=== PATIENT | male | born 1960 | race Caucasian/White ===

== ENCOUNTER 2020-01-30 00:31 | Emergency (ER) | payer BC, OTHER ==
[2020-01-30 01:43] LABS: APPEARANCE,URINE CLEAR; BILIRUBIN,URINE NEGATIVE (NEGATIVE); COLOR,URINE YELLOW; GLUCOSE, URINE NEGATIVE (NEGATIVE); KETONES,URINE NEGATIVE (NEGATIVE); LEUKOCYTE ESTERASE,URINE NEGATIVE (NEGATIVE); NITRITE,URINE NEGATIVE (NEGATIVE); PROTEIN,URINE NEGATIVE (NEGATIVE); URINE SPECIFIC GRAVITY 1.023; UROBILINOGEN,URINE NEGATIVE mg/dL (<2.0)
[2020-01-30 01:47] LABS: ABSOLUTE EOSINOPHILS # (AUTO) 0.2 10^3/uL (0.0-0.6); ABSOLUTE LYMPHOCYTES (AUTO) 1.9 10^3/uL (0.5-4.7); ABSOLUTE MONOCYTES (AUTO) 0.7 10^3/uL (0.1-1.4); ABSOLUTE NEUT (AUTO) 3.2 10^3/uL (1.7-8.2); BASOPHILS % (AUTO) 0.6 % (0-2); EOSINOPHILS % (AUTO) 3.2 % (0-6); HEMATOCRIT 44.4 % (37.9-51.0); HEMOGLOBIN 15.4 g/dL (13.5-17.0); LYMPHOCYTES % (AUTO) 32.2 % (13-45); MEAN CORPUSCULAR HEMOGLOBIN 31.7 pg (27.0-33.4); MEAN CORPUSCULAR HGB CONC 34.8 g/dL (32.0-36.0); MEAN CORPUSCULAR VOLUME 91 fl (80-97); PLATELET COUNT 161 10^3/uL (150-450); RED BLOOD COUNT 4.88 10^6/uL (4.35-5.55); RED CELL DISTRIBUTION WIDTH 14.2 % (11.5-14.0); TOTAL CELLS COUNTED % (AUTO) 100 %; WHITE BLOOD COUNT 5.9 10^3/uL (4.0-10.5)
[2020-01-30 02:09] LABS: ALBUMIN 4.3 g/dL (3.5-5.0); ALKALINE PHOSPHATASE 83 U/L (38-126); ANION GAP 8 (5-19); ASPARTATE AMINO TRANSFERASE 38 U/L (17-59); BILIRUBIN,TOTAL 0.4 mg/dL (0.2-1.3); BLOOD UREA NITROGEN 20 mg/dL (7-20); CALCIUM 9.5 mg/dL (8.4-10.2); CARBON DIOXIDE 29 mmol/L (22-30); CHLORIDE 102 mmol/L (98-107); GLUCOSE 115 mg/dL (75-110); POTASSIUM 4.3 mmol/L (3.6-5.0); TOTAL PROTEIN 7.6 g/dL (6.3-8.2)
[2020-01-30 04:37] VITALS: BP 104/69
--- NOTE | 2020-01-30 09:29 | EKG REPORT ---
SEVERITY:- ABNORMAL ECG - SINUS BRADYCARDIA NONSPECIFIC INTRAVENTRICULAR CONDUCTION DELAY : Confirmed by: Alonso Hall MD 30-Jan-2020 09:28:30
--- NOTE | 2020-01-31 14:15 | ER Document Report ---
Entered by CASSANDRA SHORT SCRIBE 01/30/20 0428 Acting as scribe for:STEVO MEHTA IV, MD ED General - General Chief Complaint: Chest Pain > 30 Stated Complaint: RIGHT SHARP PAINS IN STOMACH Time Seen by Provider: 01/30/20 04:13 Primary Care Provider: ROBERT,ZACK [Primary Care Provider] - Follow up as needed Mode of Arrival: Ambulatory Information source: Patient Notes: This 59 year old male patient with a history of MA x9 years ago presents to the ED today with complaints of right-sided pain that radiates to the sternal region of the chest that occurred just prior to arrival. Patient states that he was getting ready for bed when he felt the pain near his right ribs. He reports that he used a heating pad to attempt to alleviate the pain; however, the pain wrapped around to his sternum and he became concerned due to his history of MA. He notes that his son called EMS who did an EKG that was unremarkable. Patient states that he decided to come to the ED via POV for further evaluation. Denies any pain at this time. He admits to an occasional beer, but denies use of tobacco or drugs. - Related Data Allergies/Adverse Reactions: sulfamethoxazole [From Septra] Allergy (Verified 01/30/20 00:52) trimethoprim [From Septra] Allergy (Verified 01/30/20 00:52) Past Medical History - General Information source: Patient, [facility] Records - Social History Smoking Status: Never Smoker Cigarette use (# per day): No Chew tobacco use (# tins/day): No Smoking Education Provided: No Frequency of alcohol use: Occasional Drug Abuse: None Lives with: Family Family History: Reviewed & Not Pertinent Patient has suicidal ideation: No Patient has homicidal ideation: No - Past Medical History Cardiac Medical History: Reports: Hx Heart Attack - 9 years ago, per patient Past Surgical History: Reports: Hx Cardiac Catheterization, Hx Vascular Surgery Review of Systems - Review of Systems Constitutional: No symptoms reported EENT: No symptoms reported Cardiovascular: See HPI, Chest pain Respiratory: No symptoms reported Gastrointestinal: No symptoms reported Genitourinary: No symptoms reported Male Genitourinary: No symptoms reported Musculoskeletal: See HPI, Other - Right side pain Skin: No symptoms reported Hematologic/Lymphatic: No symptoms reported Neurological/Psychological: No symptoms reported -: Yes All other systems reviewed and negative Physical Exam - Vital signs Vitals: Temp Pulse Resp BP Pulse Ox 98.3 F 52 L 14 129/83 H 96 01/30/20 00:44 01/30/20 00:44 01/30/20 00:44 01/30/20 00:44 01/30/20 00:44 - General General appearance: Appears well, Alert In distress: None - HEENT Head: Normocephalic, Atraumatic Eyes: Normal Pupils: PERRL - Respiratory Respiratory status: No respiratory distress Chest status: Nontender Breath sounds: Normal Chest palpation: Normal - Cardiovascular Rhythm: Regular Heart sounds: Normal auscultation Murmur: No Friction rub: No Gallop: None auscultated - Abdominal Inspection: Normal Distension: No distension Bowel sounds: Normal Tenderness: Nontender - Abdomen soft Organomegaly: No organomegaly - Back Back: Normal, Nontender - Extremities General upper extremity: Normal inspection General lower extremity: Normal inspection - Neurological Neuro grossly intact: Yes Orientation: AAOx4 - Psychological Associated symptoms: Normal affect, Normal mood - Skin Skin Temperature: Warm Skin Moisture: Dry Skin Color: Normal Course - Re-evaluation Re-evalutation: 01/30/20 04:28 Results of ED MSE discussed with patient. Possibility of atypical chest pain versus cardiac etiology discussed with patient. Also discussed possibility of checking a second troponin for comparison. Patient states that he is completely asymptomatic this point and just wanted to make sure he had no obvious evidence of something going on with his heart. All questions were answered prior to discharge. Emergency signs and symptoms, possible etiologies of pain including biliary colic also discussed with patient. Patient strongly encouraged to not hesitate to call 911 and return to the emergency room at any point if he decides to seek further treatment or has return of the symptoms. - Vital Signs Vital signs: Temp Pulse Resp BP Pulse Ox 97.6 F 52 L 18 104/69 96 01/30/20 04:36 01/30/20 00:44 01/30/20 04:02 01/30/20 04:02 01/30/20 04:02 - Laboratory Result Diagrams: 01/30/20 01:35 01/30/20 01:35 Laboratory results interpreted by me: 01/30/20 01/30/20 01/30/20 01:14 01:35 01:35 RDW 14.2 H Glucose 115 H Urine Blood SMALL H - EKG Interpretation by Me Additional EKG results interpreted by me: 01/30/20 04:30 EKG obtained on 01/30/2020 at 00 39 hours was interpreted by this MD. Findings: Sinus bradycardia, rate 51, normal axis, P waves preceding QRS complexes, QRS complexes appear narrow, there are no obvious patterns of ST segment elevation or depression seen to suggest acute myocardial ischemia or infarction. Impress ion sinus bradycardia with nonspecific ST segments. Discharge - Discharge Clinical Impression: Acute right flank pain Disposition: HOME, SELF-CARE Additional Instructions: Return to the Emergency Department without delay if any worse. You have been evaluated in the emergency department for the right-sided pain you experienced earlier tonight. Please keep in mind that this is a limited evaluation and while there is no evidence of an acute emergency medical condition, you should be careful to pay attention to your body in any return of symptoms. Do not hesitate to call 911 if you have return of symptoms. Other possible causes of the pain you experienced can be related to your gallbladder. Patient information on gallbladder colic is included on this discharge form. HOME CARE INSTRUCTIONS & INFORMATION: Thank you for choosing us for your medical needs. We hope you're satisfied with the care you received. After you leave, you must properly care for your problem and, at the same time, observe its progress. Any condition can change. Some illnesses can change rapidly over hours or days. If your condition worsens, return to the Emergency Department or see your physician promptly. ABOUT YOUR X-RAYS AND EKG'S: If you had an EKG or X-rays taken, they have been read by the Emergency Physician. The X-rays and EKG's will also be read by a Radiologist or Search Engine Marketing Specialist within 24 hours. If discrepancies are noted, you will be notified by telephone. Please be certain the ED has a correct telephone number & address where you can be reached. Also, realize that some fractures or abnormalities do not show up on initial X-rays. If your symptoms continue, see your physician. ABOUT YOUR LABORATORY TEST: If you had laboratory tests, the results have been reviewed by the Emergency Physician. Some test results (for example cultures) may not be available for several days. You will be contacted if any test result shows you need additional treatment. Please be certain the ED has a correct telephone number and address where you can be reached. ABOUT YOUR MEDICATIONS: You will receive instructions on how to take your medicine on the prescription label you receive. Additional information may be provided by the Pharmacy. If you have questions afterwards, call the ED for clarification or further instructions. Some prescribed medications may cause drowsiness. Do not perform tasks such as driving a car or operating machinery without consulting your Pharmacist. If you feel you need a refill of pain medication, your condition will need re-evaluation. Please do not call for a refill of any medication. ABOUT YOUR SIGNATURE: Signature of this document acknowledges to followin. Understanding that you received emergency treatment and that you may be released before al medical problems are known or treated. Please be certain the ED has a correct phone number & address where you can be reached. 2. Acknowledgement that you will arrange for follow-up care as recommended. 3. Authorization for the Emergency Physician to provide information to your follow-up Physician in order to maximize your care. AT ANY TIME, IF YOUR SYMPTOMS CHANGE SIGNIFICANTLY OR WORSEN OR YOU DEVELOP NEW SYMPTOMS, RETURN TO THE EMERGENCY DEPARTMENT IMMEDIATELY FOR RE-EVALUATION. OUR GOAL IS TO PROVIDE EXCELLENT MEDICAL CARE! WE HOPE THAT WE HAVE MET YOUR EXPECTATIONS DURING YOUR EMERGENCY DEPARTMENT VISIT AND THAT YOU FEEL YOU HAVE RECEIVED EXCELLENT CARE! Gallbladder Disease The gallbladder is a pouch under the liver which stores bile. Stones, infection, or irritation of the gallbladder cause attacks of pain. Certain foods -- fats in particular -- may provoke attacks. Call the doctor or return at once if you develop severe pain, repeated vomiting, fever, or jaundice (a yellow color in the skin and whites of the eyes). Referrals: [facility] [Primary [facility]] - Follow up as needed I personally performed the services described in the documentation, reviewed and edited the documentation which was dictated to the scribe in my presence, and it accurately records my words and actions.
== END 2020-01-30 04:44 | disposition home or self-care (01) ==
LOC: ER 00:31
DX: R10.9 Unspecified abdominal pain (principal); R07.9 Chest pain, unspecified; R00.1 Bradycardia, unspecified; I25.2 Old myocardial infarction; Z88.1 Allergy status to other antibiotic agents
CPT/HCPCS: 36415; 80053; 81001; 83690; 84484; 85025; 93005; 93010; 99285

== ENCOUNTER 2020-01-31 12:14 | Emergency (ER) | payer OTHER ==
--- NOTE | 2020-01-31 12:29 | ER Document Report ---
ED Medical Screen (RME) - General Chief Complaint: Epigastric Pain Stated Complaint: EPIGASTRIC/CHEST PAIN Time Seen by Provider: 01/31/20 12:21 Primary Care Provider: ZACK JONES [Primary Care Provider] - Follow up as needed Mode of Arrival: Ambulatory Information source: Patient Notes: 59-year-old male patient presenting to the emergency department chief complaint of epigastric pain. Patient reports pain usually starts in the right upper quadrant and then spreads the epigastric area. He states he was seen here several days ago and had a negative cardiac work-up. Patient reports the pain started today while eating [employer]. Patient is concerned that it may be his gallbladder or his heart. He does report a history of an CA 9 years ago. The pain feels like a gnawing pain in the center of his epigastric area. He reports associated shortness of breath but denies any nausea. Tenderness to the epigastric area and right upper quadrant. I have greeted and performed a rapid initial assessment of this patient. A comprehensive ED assessment and evaluation of the patient, analysis of test results and completion of the medical decision making process will be conducted by additional ED providers. I have specifically instructed the patient or family members with the patient to immediately return to any nursing staff should anything change in the patient's condition or with their chief complaint. - Related Data Allergies/Adverse Reactions: sulfamethoxazole [From Septra] Allergy (Verified 01/30/20 00:52) trimethoprim [From Septra] Allergy (Verified 01/30/20 00:52) Past Medical History - Past Medical History Cardiac Medical History: Reports: Hx Heart Attack - 9 years ago, per patient Past Surgical History: Reports: Hx Cardiac Catheterization, Hx Vascular Surgery Physical Exam - Vital signs Vitals: Temp Pulse Resp BP Pulse Ox 97.6 F 64 18 153/82 H 98 01/31/20 12:19 01/31/20 12:19 01/31/20 12:19 01/31/20 12:19 01/31/20 12:19 Course - Vital Signs Vital signs: Temp Pulse Resp BP Pulse Ox 97.6 F 64 18 153/82 H 98 01/31/20 12:19 01/31/20 12:19 01/31/20 12:19 01/31/20 12:19 01/31/20 12:19 Doctor's Discharge - Discharge [facility]errals: [facility] [[facility]] - Follow up as needed
[2020-01-31 13:02] LABS: ABSOLUTE EOSINOPHILS # (AUTO) 0.1 10^3/uL (0.0-0.6); ABSOLUTE LYMPHOCYTES (AUTO) 1.6 10^3/uL (0.5-4.7); ABSOLUTE MONOCYTES (AUTO) 0.6 10^3/uL (0.1-1.4); ABSOLUTE NEUT (AUTO) 2.8 10^3/uL (1.7-8.2); BASOPHILS % (AUTO) 0.5 % (0-2); EOSINOPHILS % (AUTO) 2.4 % (0-6); HEMATOCRIT 43.8 % (37.9-51.0); HEMOGLOBIN 15.1 g/dL (13.5-17.0); LYMPHOCYTES % (AUTO) 31.8 % (13-45); MEAN CORPUSCULAR HEMOGLOBIN 31.6 pg (27.0-33.4); MEAN CORPUSCULAR HGB CONC 34.5 g/dL (32.0-36.0); MEAN CORPUSCULAR VOLUME 92 fl (80-97); MONOCYTES % (AUTO) 11.3 % (3-13); PLATELET COUNT 155 10^3/uL (150-450); RED BLOOD COUNT 4.78 10^6/uL (4.35-5.55); RED CELL DISTRIBUTION WIDTH 13.9 % (11.5-14.0); TOTAL CELLS COUNTED % (AUTO) 100 %; WHITE BLOOD COUNT 5.1 10^3/uL (4.0-10.5)
[2020-01-31 13:03] LABS: APPEARANCE,URINE SLIGHTLY-CLOUDY; BILIRUBIN,URINE NEGATIVE (NEGATIVE); COLOR,URINE YELLOW; GLUCOSE, URINE NEGATIVE (NEGATIVE); KETONES,URINE NEGATIVE (NEGATIVE); LEUKOCYTE ESTERASE,URINE NEGATIVE (NEGATIVE); NITRITE,URINE NEGATIVE (NEGATIVE); PROTEIN,URINE NEGATIVE (NEGATIVE); URINE SPECIFIC GRAVITY 1.021; UROBILINOGEN,URINE NEGATIVE mg/dL (<2.0)
[2020-01-31 13:21] LABS: ALBUMIN 4.3 g/dL (3.5-5.0); ALKALINE PHOSPHATASE 89 U/L (38-126); ANION GAP 7 (5-19); ASPARTATE AMINO TRANSFERASE 80 U/L (17-59); BILIRUBIN,DIRECT 0.1 mg/dL (0.0-0.4); BILIRUBIN,TOTAL 0.8 mg/dL (0.2-1.3); BLOOD UREA NITROGEN 20 mg/dL (7-20); CALCIUM 9.2 mg/dL (8.4-10.2); CARBON DIOXIDE 30 mmol/L (22-30); CHLORIDE 100 mmol/L (98-107); GLUCOSE 124 mg/dL (75-110); POTASSIUM 4.1 mmol/L (3.6-5.0); TOTAL PROTEIN 7.5 g/dL (6.3-8.2)
--- NOTE | 2020-01-31 13:57 | ER Document Report ---
ED General - General Chief Complaint: Epigastric Pain Stated Complaint: EPIGASTRIC/CHEST PAIN Time Seen by Provider: 01/31/20 12:21 Primary Care Provider: [facility] [Provider Group] - Follow up as needed [facility] [[facility]] - Follow up as needed Mode of Arrival: Ambulatory Notes: Patient is a 59-year-old male who presents to the emergency department with a chief complaint of epigastric pain. Patient states that his pain started in his right flank area and radiated into his epigastric area. Patient states that he ate some [employer], which initiated his symptoms. He has history of an HI 6 years ago. He was seen here in the emergency department and had a full cardiac work-up yesterday. - Related Data Allergies/Adverse Reactions: sulfamethoxazole [From Mayra] Allergy (Verified 01/30/20 00:52) trimethoprim [From Mayra] Allergy (Verified 01/30/20 00:52) Past Medical History - General Information source: Patient - Social History Smoking Status: Former Smoker Family History: Reviewed & Not Pertinent Patient has homicidal ideation: No - Past Medical History Cardiac Medical History: Reports: Hx Heart Attack - 9 years ago, per patient Past Surgical History: Reports: Hx Cardiac Catheterization, Hx Vascular Surgery Review of Systems - Review of Systems Notes: REVIEW OF SYSTEMS: CONSTITUTIONAL : Denies recent illness. Denies recent unintentional weight loss. Denies fever, chills, or sweats. EENT: Denies eye, ear, throat, or mouth pain, discharge, or symptoms. Denies nasal or sinus congestion. CARDIOVASCULAR: See HPI. RESPIRATORY: See HPI. GASTROINTESTINAL: HPI. GENITOURINARY: Denies difficulty urinating, burning, blood in urine, urgency or frequency. MUSCULOSKELETAL: Denies neck and back pain. Denies joint pain or swelling. SKIN: Denies rash, itchiness, or lesions HEMATOLOGIC : Denies easy bruising or bleeding. LYMPHATIC: Denies swollen, painful, enlarged glands. NEUROLOGICAL: Denies no numbness or tingling denies weakness. Denies headache. Denies altered mental status. Denies alteration in speech. PSYCHIATRIC: Denies stress, anxiety, alteration in sleep patterns, or depress ion. All other systems reviewed and negative. Physical Exam - Vital signs Vitals: Temp Pulse Resp BP Pulse Ox 97.6 F 64 18 153/82 H 98 01/31/20 12:19 06/01/20 12:19 01/31/20 12:19 01/31/20 12:19 01/31/20 12:19 - Notes Notes: PHYSICAL EXAMINATION: GENERAL: Appears well, healthy, well-nourished, no acute distress. HEAD: Normocephalic, atraumatic. EYES: PERRL, conjunctiva normal, all extraocular movements intact, sclera nonicteric ENT: Moist mucous membranes. NECK: Supple, no noticeable swelling, redness, rash. Normal range of motion. LUNGS: Equal breath sounds bilaterally and clear to auscultation. No wheezes rales or rhonchi. CARDIOVASCULAR: S1-S2, regular rate, regular rhythm. Radial pulses 2+, normal. ABDOMEN: Normoactive bowel sounds. Soft, nontender, no guarding, no rebound tenderness, and no masses palpated. EXTREMITIES: Normal strength and range of motion, no pitting or edema. No cyanosis. NEUROLOGICAL: Moves all extremities upon command. Strength 5/5 in all extremities. PSYCH: Normal mood, normal affect. SKIN: Warm, dry. No rash, lesions, ulcerations noted. Normal skin turgor. Course - Re-evaluation Re-evalutation: 01/31/20 14:01 Patient's hematology is unremarkable. No anemia or leukocytosis noted. Chemistries are also unremarkable. Patient's LFTs have slightly increased, which may be contributing to his pain. Troponin is unremarkable. Below suspicion for myocardial infarction, as the patient has already had 2- troponins in the last 24 to 48 hours. Urinalysis is unremarkable. Other than a small amount of blood in his urine. Awaiting ultrasound results. 01/31/20 15:15 Ultrasound shows Estelita lithiasis without cholecystitis. Discussed these results with the patient. Patient will follow up with surgery on an outpatient basis. He is in agreement with this plan. Follow-up precautions were given. Verbal discharge instructions were given to the patient. They verbalized understanding. They are stable for discharge. - Vital Signs Vital signs: Temp Pulse Resp BP Pulse Ox 97.6 F 64 18 153/82 H 98 01/31/20 12:21 01/31/20 12:19 01/31/20 12:19 01/31/20 12:19 01/31/20 12:19 - Laboratory Result Diagrams: 01/31/20 12:36 01/31/20 12:36 Laboratory results interpreted by me: 01/31/20 01/31/20 12:36 12:36 Glucose 124 H AST 80 H ALT 53 H Urine Blood SMALL H Discharge - Discharge Clinical Impression: Abdominal pain Qualifiers: Abdominal location: epigastric Qualified Code(s): R10.13 - Epigastric pain Cholelithiasis Qualifiers: Cholelithiasis location: gallbladder Cholecystitis presence: without cholecystitis Biliary obstruction: without biliary obstruction Qualified Code(s): K80.20 - Calculus of gallbladder without cholecystitis without obstruction Condition: Stable Disposition: HOME, SELF-CARE Additional Instructions: Gallbladder Disease Your evaluation shows evidence of gallbladder disease. The gallbladder is a pouch under the liver which stores bile. Stones, infection, or irritation of the gallbladder cause attacks of pain. Certain foods -- fats in particular -- may provoke attacks. The usual treatment for gallbladder disease is surgical removal of the gallbladder -- called a cholecystectomy. You will be referred to a physician qualified to advise you on the best treatment for your problem. Hospitalization is not necessary. Take clear liquids only until you are painfree. After that, you should stay on a low-fat diet, with frequent SMALL meals. Call the doctor or return at once if you develop severe pain, repeated vomiting, fever, or jaundice (a yellow color in the skin and whites of the eye s). Referrals: [facility] [[facility]] - Follow up as needed [facility] [Provider Group] - Follow up as needed
--- NOTE | 2020-01-31 14:59 | RADIOLOGY REPORT (SQ) ---
EXAM DESCRIPTION: U/S ABDOMEN LIMITED W/O DOP IMAGES COMPLETED DATE/TIME: 01/31/2020 2:39 pm REASON FOR STUDY: epigastric pain/RUQ pain COMPARISON: None. TECHNIQUE: Dynamic and static grayscale images acquired of the abdomen and recorded on PACS. Additio nal selected color Doppler and spectral images recorded. LIMITATIONS: None. FINDINGS: PANCREAS: The pancreas is obscured by overlying bowel gas. LIVER: Increased echogenicity of the hepatic parenchyma associated with attenuation of the far field. LIVER VASCULATURE: Hepatopetal directional flow in the portal veins. GALLBLADDER: The gallbladder wall measures 1.7 mm in diameter. There is a echogenic shadowing calcul us in the gallbladder lumen that measures 2 cm. There is no pericholecystic fluid. ULTRASOUND-DETECTED RAMIREZ'S SIGN: Negative. INTRAHEPATIC DUCTS AND COMMON DUCT: The common bile duct measures 3.3 mm in diameter. There is no di latation of the intrahepatic bile ducts. INFERIOR VENA CAVA: Unable to visualize the intrahepatic IVC. AORTA: Fusiform aneurysm of the distal abdominal aorta (it measures 3.2 x 3.2 cm). RIGHT KIDNEY: The right kidney measures 11.3 cm in length. There is no hydronephrosis. PERITONEAL AND RIGHT PLEURAL SPACE: No ascites or effusions. OTHER: No other findings. IMPRESSION: 1. Increased echogenicity of the hepatic parenchyma suggestive of underlying hepatic st eatosis. 2. Nonvisualization of the pancreas due to overlying bowel. 2. 3. Cholelithiasis without other associated ancillary findings to indicate an acute cholecystitis. 4. 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 TECHNICAL DOCUMENTATION: JOB ID: [id number] 2010 [employer]- All Rights Reserved Reading location - IP/workstation name: [email or web address]
[2020-01-31 15:29] VITALS: BP 129/79
--- NOTE | 2020-01-31 22:40 | EKG REPORT ---
SEVERITY:- NORMAL ECG - SINUS RHYTHM : Confirmed by: Enrico Banerjee 31-Jan-2020 22:39:16
== END 2020-01-31 15:34 | disposition home or self-care (01) ==
LOC: ER 12:14
DX: K80.20 Calculus of gallbladder without cholecystitis without obstruction (principal); R31.9 Hematuria, unspecified; I71.4 Abdominal aortic aneurysm, without rupture; R07.9 Chest pain, unspecified; R10.13 Epigastric pain; R10.9 Unspecified abdominal pain; I25.2 Old myocardial infarction; Z87.891 Personal history of nicotine dependence; Z88.1 Allergy status to other antibiotic agents
CPT/HCPCS: 36415; 76705; 80053; 81001; 83690; 84484; 85025; 93005; 93010; 99284